=== PATIENT | male | born 1945 | race Caucasian/White ===

== ENCOUNTER 2022-03-08 17:52 | Observation (INO) | payer MEDICARE, SELFPAY ==
[2022-03-08] VITALS (10 sets, daily range): BP systolic 89–100; BP diastolic 49–58; PULSE 65–84; RESP 18–20; TEMP 36.7–37.4; O2SAT 94–99; BMI 26.6; BMI 26.5
--- NOTE | 2022-03-08 18:15 | PC.NURSE ---
Notified ER of pt bp 89/56
--- NOTE | 2022-03-08 18:24 | XR_ITS ---
PROCEDURE INFORMATION: Exam: XR Chest Exam date and time: 03/08/2022 6:42 PM Age: 77 years old Clinical indication: Patient HX: Fever, positive home covid test. ; Additional info: Fever, covid + TECHNIQUE: Imaging protocol: Radiologic exam of the chest. Views: 1 view. COMPARISON: No relevant prior studies available. FINDINGS: Lungs: No acute airspace consolidation. No appreciable pulmonary edema. Pleural spaces: No pleural effusion. No pneumothorax. Heart/Mediastinum: Cardiomediastinal silouhette is within normal limits. Bones/joints: No evidence of acute osseous abnormality. IMPRESSION: No acute findings. No evidence of pneumonia.
--- NOTE | 2022-03-08 18:24 | ECG_ITS ---
APPROVED REPORT Exam: Resting ECG HR:69 bpm ECG Measurements Heart Rate 69 AXES CO 164 P 11 QRSd 100 QRS 42 QT 377 T 38 QTc 397 Conclusion SINUS RHYTHM NORMAL ECG UNCONFIRMED REPORT Electronically signed by : Irvin Oakes MD 03/10/2022 21:13:56
[2022-03-08 18:32] LABS: Influenza A, PCR Not Detected (NotDetected); Influenza B, PCR Not Detected (NotDetected)
[2022-03-08 18:36] LABS: Chloride 101 mmol/L (98-107); Sodium 132 mmol/L (136-145)
[2022-03-08 18:37] LABS: Potassium 4.5 mmoL/L (3.5-5.1)
[2022-03-08 18:39] LABS: Anion Gap 14.5 mEq/L (5-15); Blood Urea Nitrogen 18 mg/dl (9-20); Carbon Dioxide 21 mmol/L (22.0-30.0); Creatinine Clearance Estimated 57 mL/min (50-200); Estimated Glomerular Filt Rate 65 ml/min (>60); GFR (African American) 78 ML/MIN (>60)
[2022-03-08 18:40] LABS: Basophils # 0.1 K/mm3 (0-0.2); Basophils % 1.1 % (0.1-2.0); Calcium 8.8 mg/dl (8.4-10.2); Eosinophils % 0.5 % (0.1-12.0); Glucose 144 mg/dl (74-100); Hemoglobin 13.7 g/dL (14.1-18.0); Lymphocytes # 0.8 K/mm3 (0.7-4.5); Lymphocytes % 11.6 % (10-50); Mean Corpuscular HGB Conc 32.6 g/dL (31.8-35.4); Mean Corpuscular Hemoglobin 32.7 pg (27.0-31.2); Mean Corpuscular Volume 100.2 fl (80-94); Mean Platelet Volume 7.9 fl (7.4-10.4); Monocytes # 0.8 K/mm3 (0.1-1.0); Monocytes % 11.4 % (1.7-9.3); Neutrophils # 5.3 K/mm3 (1.8-7.8); Neutrophils % 75.4 % (37.0-80.0); Platelet Count 230 K/mm3 (142-424); Red Blood Count 4.19 M/mm3 (4.60-6.20); Red Cell Distribution Width 13.5 % (11.5-17.5); White Blood Count 7.1 K/mm3 (4.8-10.8)
[2022-03-08 18:58] LABS: Troponin I < 0.01 ng/ml (0.00-0.034)
--- NOTE | 2022-03-08 19:03 | HMH.EDGENADL ---
Discharge Plan Disposition Patient Disposition: Admitted as Observation Condition: Fair Prescriptions Prescriptions: No Action metformin 500 mg tablet 500 mg PO BID atorvastatin 20 mg tablet 20 mg PO DAILY allopurinol 100 mg tablet 100 mg PO DAILY glimepiride 1 mg Tablet 1 mg PO DAILY aspirin 81 mg Tablet 81 mg PO DAILY lisinopril 5 mg tablet 5 mg PO DAILY Referrals Follow up/Referrals: Marlene Llanes [Primary Care Provider] - See instructions Clinical Impressions Clinical Impression: COVID-19 virus infection, Acute hypotension Discharge ED Provider: Tomas Hines General Adult HPI General Chief complaint: Fever Stated complaint: temp 102.7, cough,body aches,home test+ Time Seen by Provider: 03/08/22 18:40 Mode of Arrival: Ambulatory Source of Information: Patient Limitations: No Limitations Description of Symptoms (Recalled from ER Triage Doc. by RN): PT TESTED POSITIVE FOR COVID AT HOME AND IS FEELING WORSE , PT C/O WEAKNESS, BODY ACHES AND FEVER. PT REPORTS SYMPTOMS X2 DAYS. History of Present Illness HPI narrative: Patient has been sick since yesterday with congestion and cough. Today his thought that he felt extremely hot took his temperature and it was 103.5. Treated with 3 ibuprofen and brought to the emergency department. She did a home COVID test and it was positive. He is diabetic. Sugar has been running about 140. She has been sick with a respiratory infection herself for about a week, but had a COVID test at her PCP and it was negative. She has been on antibiotics since seeing her PCP. The patient has been vaccinated and boosted once against COVID. Related Data Home Medications Medication Instructions Recorded Confirmed allopurinol 100 mg tablet 100 mg PO DAILY unknown 03/08/22 03/08/22 aspirin 81 mg tablet 81 mg PO DAILY heart health 03/08/22 03/08/22 atorvastatin 20 mg tablet 20 mg PO DAILY Cholesterol 03/08/22 03/08/22 glimepiride 1 mg tablet 1 mg PO DAILY Diabetes 03/08/22 03/08/22 lisinopril 5 mg tablet 5 mg PO DAILY Hypertension 03/08/22 03/08/22 metformin 500 mg tablet 500 mg PO BID Diabetes 03/08/22 03/08/22 Allergies Allergy/AdvReac Type Severity Reaction Status Date / Time Penicillins Allergy Intermediate Verified 03/08/22 18:23 PFSH PFSH Medical History (Updated 03/08/22 @ 19:56 by Tomas Hines MD) Diabetes High cholesterol Hypertension Social History Smoking Status: Never smoker ROS Obtained: Yes Systems reviewed as appropriate & no additional complaints except as documented Constitutional Constitutional: Reports fever(s), Denies headache(s) and Denies weakness ENT Ears, Nose, Mouth, and Throat: Denies headache(s), Reports nasal congestion and Denies sore throat Cardiovascular Cardiovascular: Denies chest pain Respiratory Respiratory: Denies shortness of breath and Reports cough Gastrointestinal Gastrointestingal: Denies abdominal pain, constipation, diarrhea or vomiting Genitourinary Male Genitourinary: Denies difficulty urinating and Denies flank pain Musculoskeletal Musculoskeletal: Denies numbness Neurologic Neurologic: Denies headache(s), Denies numbness and Denies weakness Physical Exam General General appearance: alert and in no apparent distress Head Head exam: atraumatic and normocephalic Eye Eye exam: Present normal appearance and EOMI ENT ENT exam: Present mucous membranes moist Neck Neck exam: Present normal inspection and trachea midline Chest Chest inspection: Present normal inspection and symmetric chest wall rise Respiratory Respiratory exam: Present normal lung sounds bilaterally; Absent respiratory distress Cardiovascular Cardiovascular exam: Present regular rate, normal rhythm and normal heart sounds Abdominal Exam Abdominal exam: Present soft and normal bowel sounds; Absent distention, tenderness, guarding, rebound or rigidity Extremities Exam Extremities exam: Present nor
[2022-03-08 19:13] LABS: Coronavirus 19, PCR Detected (NotDetected)
--- NOTE | 2022-03-08 19:19 | PC.NURSE ---
report given to rasrn
--- NOTE | 2022-03-08 19:23 | PC.NURSE ---
Rechecked pt conditioned. No needs or complaints voiced.
[2022-03-08 19:49] LABS: Lactic Acid 1.1 mmol/L (0.7-2.1)
[2022-03-08 20:28] LABS: Microscopic, Urine URINE MICROSCOPIC (MICROSCOPIC)
[2022-03-08 20:37] LABS: Appearance,Urine CLEAR (Clear); Bilirubin,Urine Negative (Negative); Blood, Urine Negative (Negative); Color,Urine YELLOW (Yellow); Glucose,Urine (UA) Negative (Negative); Ketones,Urine Negative (Negative); Leukocyte Esterase,Urine Negative (Negative); Nitrate,Urine Negative (Negative); Protein,Urine Negative (Negative); Specific Gravity, Urine 1.025 (1.005-1.030); Urobilinogen,Urine 0.2 EU/dl (0.2)
[2022-03-08 20:42] LABS: WBC,Urine Occasional #/hpf (0-3)
--- NOTE | 2022-03-08 20:59 | CT_ITS ---
PROCEDURE INFORMATION: Exam: CT Chest Without Contrast; Diagnostic Exam date and time: 03/08/2022 9:06 PM Age: 77 years old Clinical indication: Cough and other: Covid; Additional info: Cough - covid TECHNIQUE: Imaging protocol: Diagnostic computed tomography of the chest without contrast. Radiation optimization: All CT scans at this facility use at least one of these dose optimization techniques: automated exposure control; mA and/or kV adjustment per patient size (includes targeted exams where dose is matched to clinical indication); or iterative reconstruction. COMPARISON: CR XR CHEST PORTABLE 03/08/2022 6:42 PM FINDINGS: Lungs: No acute airspace consolidation. No appreciable pulmonary edema. Pleural spaces: No pleural effusion. No pneumothorax. Heart: No cardiomegaly. No significant pericardial effusion. Calcific coronary artery disease. Aortic valve annular calcifications. Mediastinal space: Encapsulated fat density lesion in the lower right mediastinum along the distal esophageal wall measuring approximately 6 x 5 x 3 cm, consistent with benign esophageal lipoma. Lymph nodes: Unremarkable. Vasculature: Aorta is normal in caliber with a moderate amount of calcified atherosclerotic plaque. Intraperitoneal space: No emergent findings or suspicious mass lesions in the visualized upper abdomen. Bones/joints: No acute osseous abnormality. Soft tissues: Unremarkable. IMPRESSION: 1. No acute findings in the chest. No evidence of pneumonia. 2. Calcific coronary artery disease. 3. Aortic valve annular calcifications. 4. Distal esophageal lipoma. Surgical consult could be considered if symptomatic. Otherwise, no further action is necessary.
[2022-03-08 21:57] LABS: Troponin I < 0.01 ng/ml (0.00-0.034)
--- NOTE | 2022-03-08 22:00 | PC.NURSE ---
PT ARRIVED TO FLOOR VIA WHEELCHAIR @ 2129.
--- NOTE | 2022-03-08 22:48 | EXP.HP ---
History of Present Illness *Admission Date: 03/08/22 *Reason for visit:: Covid19 +, hypotension *History of present illness: History & Physical for admission I saw and examined this patient in the ED for an admission to the Med/Surg Unit. Upon examination of this patient he appeared to be in no acute distress and nontoxic in nature. This 77 y.o. male presented to the ER for evaluation of being sick since yesterday with congestion and cough.?His advised that after she returned from [place] this morning she thought that he felt extremely hot and took his temperature and it was 103.5.?She gave him 3 ibuprofen and brought to the emergency department.? She also did a home COVID test and it was positive.? Mr. Casas has a PMH of HTN, HLD and DM. Evaluation in the ED confirmed the Covid test to be positive as well as ruling out sepsis and pneumonia with labs and CXR but his vital signs are remarkable for hypotension and given IVF. He has been taking oral antibiotics from his PCP for the past week. Will continue antibiotic therapy with the addition of steroids and antiviral therapy and Covid precautions while inpatient. [facility] Medical History Cataract Diabetes High cholesterol Hypertension Surgical History History of hernia surgery Family History Father Emphysema lung Family history of myocardial infarction Daughter Cancer Social History Smoking Status: Never smoker alcohol intake: never current occupational status: retired Travel in the last 8 weeks: Inside the [facility] Review of Systems Constitutional Constitutional: Reports system reviewed and no additional complaints, except as documented, Reports as per HPI, Reports headache(s) and Denies weakness Eyes Eyes: Reports system reviewed and no additional complaints, except as documented, Reports as per HPI and Denies blurry vision ENT Ears, Nose, Mouth, and Throat: Reports system reviewed and no additional complaints, except as documented, Reports as per HPI and Reports headache(s) *Cardiovascular Cardiovascular: Reports system reviewed and no additional complaints, except as documented, Reports as per HPI, Denies chest pain, Denies chest pain at rest, Denies chest pain with activity, Reports dyspnea, Denies dyspnea on exertion, Denies leg edema and Denies lightheadedness *Respiratory Respiratory: Reports system reviewed and no additional complaints, except as documented, Reports as per HPI, Reports cough, Reports dyspnea and Denies dyspnea on exertion *Gastrointestinal Gastrointestinal: Reports system reviewed and no additional complaints, except as documented, Reports as per HPI, Denies abdominal pain, Denies nausea and Denies vomiting *Genitourinary Genitourinary: Reports system reviewed and no additional complaints, except as documented and Reports as per HPI *Musculoskeletal Musculoskeletal: Reports system reviewed and no additional complaints, except as documented, Reports as per HPI and Denies numbness Integumentary/Breasts Skin/Breast: Reports system reviewed and no additional complaints, except as documented, Reports as per HPI and Denies rash *Neurologic Neurologic: Reports system reviewed and no additional complaints, except as documented, Reports as per HPI, Reports headache(s), Denies numbness and Denies weakness Psychiatric Psychiatric: Reports system reviewed and no additional complaints, except as documented, Reports as per HPI, Denies anxiety, Denies hopelessness and Denies suicidal ideation Endocrine Endocrine: Reports system reviewed and no additional complaints, except as documented and Reports as per HPI Hematologic/Lymphatic Hematologic/Lymphatic: Reports system reviewed and no additional complaints, except as documented, Reports as per HPI, Denies easy bl
[2022-03-09] VITALS (8 sets, daily range): BP systolic 84–115; BP diastolic 44–71; PULSE 60–72; RESP 16–20; TEMP 36.6–37.4; O2SAT 94–97; BMI 27.3
[2022-03-09 00:52] LABS: Troponin I < 0.01 ng/ml (0.00-0.034)
[2022-03-09 03:27] LABS: POC Glucose,Bedside 182 (70-110)
--- NOTE | 2022-03-09 04:37 | PC.NURSE ---
PTs BP REPORTED FROM [facility] IS 84/44. CONTACTED Nava LUIS NP. ORDERS RECEIVED FOR A 500 ML BOLUS, INFUSING NOW.
--- NOTE | 2022-03-09 05:24 | PC.NURSE ---
PTS BP IS NOW 90/52 AFTER 500 ML BOLUS. AIRPLANE ENGINEER NOTIFIED. CONTINUE IVF ORDERED, HOLD BP MEDS UNTIL FURTHER NOTICE.
--- NOTE | 2022-03-09 05:56 | PC.NURSE ---
Pt is alert and oriented x 4. Pt has had no complaints. Pts O2 sat is 93-94% on RA while awake. While sleeping, O2 sats dropping occasionally down to mid 80s. Pt does have sleep apnea and uses a cpap at home. Offered pt facility cpap, pt refused and said he should be going home tomorrow. 2 L NC applied while pt sleeps. Provider aware. At 0400 VS pt BP 84/44, provider notified. Per provider, give 500 ml bolus from IV fluids. After bolus, BP is 90/52. Checking FSBS q6hrs and medicating per MAR. Pt is NSR on tele. Call light in reach, no other needs voiced at this time.
[2022-03-09 06:49] LABS: Basophils % 0.4 % (0.1-2.0); Eosinophils % 0.1 % (0.1-12.0); Hemoglobin 12.8 g/dL (14.1-18.0); Lymphocytes # 0.6 K/mm3 (0.7-4.5); Lymphocytes % 14.1 % (10-50); Mean Corpuscular HGB Conc 32.8 g/dL (31.8-35.4); Mean Corpuscular Hemoglobin 32.9 pg (27.0-31.2); Mean Corpuscular Volume 100.2 fl (80-94); Mean Platelet Volume 8.4 fl (7.4-10.4); Monocytes # 0.2 K/mm3 (0.1-1.0); Neutrophils # 3.3 K/mm3 (1.8-7.8); Neutrophils % 80.5 % (37.0-80.0); Platelet Count 207 K/mm3 (142-424); Red Blood Count 3.89 M/mm3 (4.60-6.20); Red Cell Distribution Width 13.5 % (11.5-17.5); White Blood Count 4.1 K/mm3 (4.8-10.8)
[2022-03-09 06:53] LABS: Chloride 107 mmol/L (98-107); Potassium 4.8 mmoL/L (3.5-5.1); Sodium 137 mmol/L (136-145)
[2022-03-09 06:56] LABS: Alanine Aminotransferase 26 U/L (12-78); Albumin Level 3.2 g/dl (3.5-5.0); Albumin/Globulin Ratio 1.5 (1.1-1.8); Alkaline Phosphatase 53 U/L (38-126); Anion Gap 12.8 mEq/L (5-15); Aspartate Amino Transferase 27 U/L (17-59); Bilirubin,Total 0.3 mg/dl (0.2-1.3); Blood Urea Nitrogen 16 mg/dl (9-20); Calcium 7.8 mg/dl (8.4-10.2); Carbon Dioxide 22 mmol/L (22.0-30.0); Creatinine Clearance Estimated 64 mL/min (50-200); Estimated Glomerular Filt Rate 82 ml/min (>60); GFR (African American) 99 ML/MIN (>60); Globulin 2.1 g/dL (1.3-3.2); Glucose 190 mg/dl (74-100); Total Protein,Serum 5.3 g/dl (6.3-8.2)
[2022-03-09 06:57] LABS: Magnesium 1.8 mg/dl (1.6-2.3)
[2022-03-09 07:02] LABS: C-Reactive Protein 14.7 mg/L (0-4)
--- NOTE | 2022-03-09 09:28 | HMH.PHAINT1 ---
Pharmacy Intervention Comments: MEDICATION RECONCILIATION COMPLETED ON PATIENT USING EXTERNAL FILL HISTORY FROM PHARMACY. -MARILYN SANTOS, FADID
--- NOTE | 2022-03-09 09:30 | HMH.PHAINT1 ---
Pharmacy Intervention Comments: home medication list verified using list from [facility]
[2022-03-09 11:37] LABS: POC Glucose,Bedside 304 (70-110)
--- NOTE | 2022-03-09 11:42 | EXP.PN ---
Subjective *Date: 03/09/22 *Time: 11:42 Interval history: Date of service March 09, 2022 The patient reports no acute cough or dyspnea. He is accompanied by his of greater than 50 years. He reports that he has received COVID-19 vaccine x 3. I am accompanied by Kevin from PT. Nursing staff report that he remains afebrile with stable vital signs and saturating appropriately on room air. He is due for a 6-minute walk test to see if his oxygen saturations remained stable. His labs have been reviewed and discussed including a normal white blood cell count, troponins negative x3 and normal lactic acid. His imaging has been reviewed identifying no acute disease in the chest x-ray and no pneumonia on CT of chest. No groundglass opacities are identified. Exam Data for Last 24 hours Vital signs and Labs for Last 24 Hours: Temp Pulse Resp BP Pulse Ox 97.8 F 65 18 99/66 L 97 03/09/22 08:00 03/09/22 08:00 03/09/22 08:00 03/09/22 08:00 03/09/22 08:00 Laboratory Results - last 24 hr 03/08/22 18:20: WBC 7.1, RBC 4.19 L, Hgb 13.7 L, Hct 42.0, MCV 100.2 H, MCH 32.7 H, MCHC 32.6, RDW 13.5, Plt Count 230, MPV 7.9, Neut % (Auto) 75.4, Lymph % (Auto) 11.6, [place] % (Auto) 11.4 H, Eos % (Auto) 0.5, Baso % (Auto) 1.1, Neut # (Auto) 5.3, Lymph # (Auto) 0.8, [place] # (Auto) 0.8, Eos # (Auto) 0.0, Baso # (Auto) 0.1 03/08/22 18:20: Sodium 132 L, Potassium 4.5, Chloride 101, Carbon Dioxide 21 L, Anion Gap 14.5, BUN 18, Creatinine 1.10, Estimated Creat Clear 57, Estimated GFR 65, Est GFR ( Amer) 78, Glucose 144 H, Calcium 8.8, Troponin I < 0.01 03/08/22 18:24: SARS-CoV-2 (PCR) Detected A, Influenza A Untype (PCR) Not detected, Influenza Type B (PCR) Not detected 03/08/22 19:25: Lactate 1.1 03/08/22 20:24: Urine Color Yellow, Urine Appearance Clear, Urine pH 6.0, Ur Specific [place] 1.025, Urine Protein Negative, Urine Glucose (UA) Negative, Urine Ketones Negative, Urine Blood Negative, Urine Nitrate Negative, Urine Bilirubin Negative, Urine Urobilinogen 0.2, Ur Leukocyte Esterase Negative, Urine WBC Occasional 03/08/22 21:20: Troponin I < 0.01 03/09/22 00:10: Troponin I < 0.01 03/09/22 03:20: POC Glucose 182 H 03/09/22 06:15: WBC 4.1 L D, RBC 3.89 L, Hgb 12.8 L, Hct 39.0 L, MCV 100.2 H, MCH 32.9 H, MCHC 32.8, RDW 13.5, Plt Count 207, MPV 8.4, Neut % (Auto) 80.5 H, Lymph % (Auto) 14.1, [place] % (Auto) 5.0, Eos % (Auto) 0.1, Baso % (Auto) 0.4, Neut # (Auto) 3.3, Lymph # (Auto) 0.6 L, [place] # (Auto) 0.2, Eos # (Auto) 0.0, Baso # (Auto) 0.0 03/09/22 06:15: Sodium 137, Potassium 4.8, Chloride 107, Carbon Dioxide 22, Anion Gap 12.8, BUN 16, Creatinine 0.90, Estimated Creat Clear 64, Estimated GFR 82, Est GFR ( Amer) 99 D, Glucose 190 H D, Calcium 7.8 L, Magnesium 1.8, Total Bilirubin 0.3, AST 27, ALT 26, Alkaline Phosphatase 53, C-Reactive Protein 14.7 H, Total Protein 5.3 L, Albumin 3.2 L, Globulin 2.1, Albumin/Globulin Ratio 1.5 03/09/22 10:34: POC Glucose 304 H* I & O for Last 24 hours: Intake & Output 03/06/22 03/07/22 03/08/22 03/09/22 23:59 23:59 23:59 23:59 Intake Total 1655 / 1655 Output Total 1250 / 1250 Balance 405 / 405 Weight 72.32 kg 74.588 kg Constitutional Constitutional: no acute distress, average body habitus and cooperative *Routine HEENT Exam Head: Present normocephalic and atraumatic Eye: Present EOMI and PERRL ENT: Present mucous membranes moist *Routine Neck Exam Neck: Present supple; Absent lymphadenopathy or thyromegaly *Routine Respiratory Exam Respiratory: Present CTA bilaterally, normal respiratory effort and symmetric chest movement; Absent respiratory distress *Routine Cardiovascular Exam Cardiovascular: Present RRR, Normal S1 and Normal S2 *Routine Abdominal Exam Abdominal: Present soft and normoactive bowel sounds; Absent tenderness *Routine Extremities Exam Extremities: Present full ROM, pulses intact and normal capillary refill; Absent cyanosis, clubbing or edema *Routine Skin Exam Skin: Pres
--- NOTE | 2022-03-09 11:57 | HMH.PTEV ---
Physical Therapy Evaluation Rehab PT IP Evaluation Start: 03/09/22 11:25 Freq: ONCE Status: Active Protocol: Document 03/09/22 11:46 TRACIE (Rec: 03/09/22 11:57 TRACIE [id number]) Subjective/History History History Upon examination of this patient he appeared to be in no acute distress and nontoxic in nature. This 77 y.o. male presented to the ER for evaluation of being sick since yesterday with congestion and cough.?His advised that after she returned from [place] this morning she thought that he felt extremely hot and took his temperature and it was 103.5.?She gave him 3 ibuprofen and brought to the emergency department.? She also did a home COVID test and it was positive.? Mr. Casas has a PMH of HTN, HLD and DM. Evaluation in the ED confirmed the Covid test to be positive as well as ruling out sepsis and pneumonia with labs and CXR but his vital signs are remarkable for hypotension and given IVF. He has been taking oral antibiotics from his PCP for the past week. Will continue antibiotic therapy with the addition of steroids and antiviral therapy and Covid precautions while inpatient. Subjective Subjective Pt reports feeling better Rehab PT IP Eval Objective Appearance Patient Behavior Appropriate,Cooperative Patient Orientation Person,Place,Name,Birthday, Year,Situation Difficulty following instructions none Speech Pattern Clear,Appropriate Ambulation Patient Able to Ambulate Yes Ambulation Observation IP General Gait Pattern Observation No Deviations/Normal Ambulation Distance (feet) 75 Ambulation Assistive Device None Ambulation Ability Supervision/Stand by Balance Ability to Arise Able, w/o using arms Sitting Balance Steady, safe Standing Balance Narrow stance w/o support Dynamic Sitting Balance Ability N
--- NOTE | 2022-03-09 13:37 | HMH.OTEV ---
OT Inpatient Evaluation Rehab OT IP Evaluation Start: 03/09/22 11:25 Freq: ONCE Status: Complete Protocol: Document 03/09/22 13:32 NEELIMA (Rec: 03/09/22 13:36 [id number] Rehab OT IP Assessment Subjective History Pt oriented x 3 on arrival. Pt agreeable to engage in therapy evaluation. Pt was admitted via ED on 03/08/22 due to Covid19 +, hypotension . Prior to being in the [facility], pt lived at home with his . Pt claims he was independent with all ADLs and IADLS before becoming ill. 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 Pt did not require any type of AE during ambulation. Pt still drove. Pt has a past medical history of: Cataract Diabetes High cholesterol Hypertension Subjective I am ready to go home. Objective Patient Orientation Person,Place,Birthday Upper Extremity Gross ROM WFL Transfer Training Sit/Stand Transfer Assist Level Supervision/Stand by Chair Transfer Ability Supervision/Stand by Chair Transfer Technique Sit to/from Ambulatory Chair Transfer Assistive Devices None Lower Body Dressing Ability Standby Assistance Overall Commode/Toilet Transfer Ability Standby Assistance Commode/Toilet Transfer Technique Sit to/from Ambulatory Rehab OT IP prob,goals,plan Problems Date of Evaluation: 03/09/22 Rehab Potential Rehab Potential Innapropriate for Skilled Therapy Discharge Plan OT Discharge Plan At this time, pt appears to be at his baseline with ADL independene and functional transfers. Pt can return home with his once medically stable per physician. Eval Complexity Eval Charge Codes 86242 - Moderate Complexity G Codes G -code Required No PHYSICIAN CERTIFICATION: I certify the specified therapy services for Kiel Casas are required, authorized, and reviewed every 30 days.
[2022-03-09 16:23] LABS: POC Glucose,Bedside 276 (70-110)
--- NOTE | 2022-03-09 16:27 | PC.NURSE ---
PT IS AOX4, HAS SPENT MOST OF SHIFT UP TO CHAIR AND TOLERATED WELL. HAS NOT REQUIRED O2 SUPPORT. LISINOPRIL HELD THIS AM R/T DECREASED BP:PROVIDER MADE AWARE. NSR ON TELEMETRY.
[2022-03-10 04:00] VITALS: BP 126/70; PULSE 60; RESP 18; TEMP 36.9; O2SAT 96
[2022-03-10 04:01] LABS: POC Glucose,Bedside 290 (70-110)
[2022-03-10 04:01] LABS: POC Glucose,Bedside 182 (70-110)
[2022-03-10 04:05] VITALS: BMI 25.9
--- NOTE | 2022-03-10 06:13 | PC.NURSE ---
pt. has rested t/o the shift. A&OX4. O2 sats >95% on RA. ambulates to and from bathroom with standby assistance. no complaints of pain or SOA at this time. pt FSBS at 3:45 was 182, pt refused insulin coverage for fear of dropping due to breakfast not being for a few hours. at bedside. CB in reach.
[2022-03-10 07:35] LABS: Lactate Dehydrogenase 144 U/L (313-618)
[2022-03-10 07:40] LABS: D-Dimer 0.79 ug/mL (0.0-0.5)
[2022-03-10 08:00] VITALS: PULSE 70
[2022-03-10 08:17] LABS: C-Reactive Protein 11.6 mg/L (0-4)
--- NOTE | 2022-03-10 08:41 | EXP.DC.SUM ---
General Admission date:: 03/08/22 Discharge date: 03/10/22 HPI HPI HPI: History & Physical for admission Hospitalist examined this patient in the ED for an admission to the Med/Surg Unit. Upon examination of this patient he appeared to be in no acute distress and nontoxic in nature. This 77 y.o. male presented to the ER for evaluation of being sick since yesterday with congestion and cough.?His advised that after she returned from [place] this morning she thought that he felt extremely hot and took his temperature and it was 103.5.?She gave him 3 ibuprofen and brought to the emergency department.? She also did a home COVID test and it was positive.? Mr. Casas has a PMH of HTN, HLD and DM. Evaluation in the ED confirmed the Covid test to be positive as well as ruling out sepsis and pneumonia with labs and CXR but his vital signs are remarkable for hypotension and given IVF. He has been taking oral antibiotics from his PCP for the past week. Will continue antibiotic therapy with the addition of steroids and antiviral therapy and Covid precautions while inpatient. Hospital Course Hospital Course Hospital Course: 77-year-old gentleman found to be Covid 19 positive in the ER. He reports that he is vaccinated to COVID x3.? Initiated on COVID-19 protocol, however as he showed improvement with oxygenation and stable on room air, dexamethasone, remdesivir, and baricitinib were discontinued. Treated with IV fluids and symptomatic management. Chest x-ray identified no acute disease.? CT chest identified no groundglass opacities or pulmonary infiltrates. Given clinical improvement, stable on room air, normal blood pressure, patient medically stable for discharge home to continue to convalesce from COVID-19. Problems during hospitalization managed as below:? Hypotension -Held blood pressure medication and treated with IV fluids. Blood pressure normalized. Recommend holding blood pressure medication at home if blood pressures remain below 110/80. Has the ability to monitor blood pressure at home. Reevaluate at follow-up with primary care. Continue patient's home medications for diabetes and hyperlipidemia. No acute issues during hospitalization. Discussed care plan with patient and patient's . Comfortable with discharge home to continue to convalesce Exam Data for Last 24 hours Vital signs and Labs for Last 24 Hours: Temp Pulse Resp BP Pulse Ox 98.5 F 60 18 126/70 96 03/10/22 04:00 03/10/22 04:00 03/10/22 04:00 03/10/22 04:00 03/10/22 04:00 Laboratory Results - last 24 hr 03/09/22 10:34: POC Glucose 304 H* 03/09/22 15:57: POC Glucose 276 H 03/09/22 20:02: POC Glucose 290 H 03/10/22 03:48: POC Glucose 182 H 03/10/22 06:18: D-Dimer 0.79 H 03/10/22 06:18: Lactate Dehydrogenase 144 L, C-Reactive Protein 11.6 H I & O for Last 24 hours: Intake & Output 03/07/22 03/08/22 03/09/22 03/10/22 23:59 23:59 23:59 23:59 Intake Total 3333 / 3333 360 / 360 Output Total 1250 / 1250 0 / 0 Balance 2083 / 2083 360 / 360 Weight 72.32 kg 74.58 kg 70.789 kg Constitutional Constitutional: no acute distress, average body habitus and cooperative *Routine HEENT Exam Head: Present normocephalic and atraumatic Eye: Present EOMI and PERRL ENT: Present mucous membranes moist *Routine Neck Exam Neck: Present supple; Absent lymphadenopathy or thyromegaly *Routine Respiratory Exam Respiratory: Present CTA bilaterally, normal respiratory effort and symmetric chest movement; Absent respiratory distress *Routine Cardiovascular Exam Cardiovascular: Present RRR, Normal S1 and Normal S2 *Routine Abdominal Exam Abdominal: Present soft and normoactive bowel sounds; Absent tenderness *Routine Rectal Exam Patient deferred: visual exam *Routine Exam Patient deferred: penile exam *Routine Extremities Exam Extremities: Absent cyanosis, clubbing or edema *Routine Skin Exam Skin: Present warm; Absent cyanosis or rash *Routine Neur
[2022-03-10 08:46] LABS: Ferritin 58.2 ng/ml (17.9-464)
[2022-03-10 10:59] VITALS: BP 150/74; PULSE 60; RESP 17; TEMP 36.4; O2SAT 100
[2022-03-10 15:37] VITALS: BP 125/65; PULSE 57; RESP 17; TEMP 36.7; O2SAT 97
--- NOTE | 2022-03-11 12:47 | CARE MANAGER ---
I called and spoke with patient's this morning. She states that Mr. Casas is doing ok. He wasn't able to fill his cough medication, but pharmacist told them to get Robitussin D over the counter. Plan is to follow up with PCP, but office is closed today, so plans to call tomorrow to schedule. No complaints or concerns at this time.
== END 2022-03-10 16:30 | disposition home or self-care (01) ==
LOC: ER 19:56 → 2ND 20:10
PROVIDERS: Family Medicine; Admitting Provider Nurse Practitioner Family; Emergency Provider Emergency Medicine; PCP Family Medicine; Visit Provider Internal Medicine Adolescent Medicine
DX: U07.1 COVID-19 (principal); E11.9 Type 2 diabetes mellitus without complications; Z79.4 Long term (current) use of insulin; I10 Essential (primary) hypertension; E78.5 Hyperlipidemia, unspecified; I95.9 Hypotension, unspecified; Z79.899 Other long term (current) drug therapy; Z20.822 Contact with and (suspected) exposure to COVID-19
CPT/HCPCS: G0378; 36415; 71045; 71250; 80048; 80053; 81001; 82728; 82962; 83605; 83615; 83735; 84484; 85025; 85378; 86140; 87040; 93005; 97161; 97166; 99291; C9803; U0003; U0005